=== PATIENT | female | born 1965 | race Two or more races ===

== ENCOUNTER 2017-02-15 11:18 | Outpatient (CLI) | payer BC ==
--- NOTE | 2017-02-23 13:33 | Mammography Report ---
DIGITAL SCREENING MAMMOGRAM: 02/15/2017 CLINICAL INDICATION: A 51-year-old nulliparous patient for screening. COMPARISON: Films from [place], [place] dated 05/29/2014, 05/20/2014, 02/18/2009, 10/22/2008, , 12/18/2006. TECHNIQUE: Routine CC and MLO projections were obtained of the breasts. FINDINGS: The breasts again demonstrate scattered fibroglandular densities bilaterally. Small circu mscribed nodules are stable bilaterally. Coarse, typically benign calcifications are present. No medina spicious masses, clustered microcalcifications, or regions of architectural distortion are identified . IMPRESSION: BENIGN FINDINGS. RECOMMENDATION: Routine annual screening unless otherwise clinically indicated. BIRADS CATEGORY 2 - BENIGN FINDINGS. STANDARD QUALIFYING STATEMENTS 1. This examination was reviewed with the aid of Computer-Aided Detection (CAD). 2. A negative or benign imaging report should not delay biopsy if clinically suspicious findings are present. Consider surgical consultation if warranted. More than 5% of cancers are not identified by i maging. 3. Dense breasts may obscure an underlying neoplasm. JOB #: [id number] EXT JOB #:[id number]
== END 2017-02-15 11:19 | disposition home or self-care (01) ==
LOC: DI 11:18
PROVIDERS: ATTEND Internal Medicine
DX: Z12.31 Encounter for screening mammogram for malignant neoplasm of breast (principal)
CPT/HCPCS: 77067

== ENCOUNTER 2019-05-12 00:32 | Outpatient (CLI) | payer OTHER | END 2019-05-12 00:33 | disposition critical access hospital (66) | LOC: EMS 00:32 | PROVIDERS: ATTEND Surgery | DX: R55 Syncope and collapse (principal); R63.0 Anorexia; R11.0 Nausea; R19.7 Diarrhea, unspecified; R05 Cough; R03.1 Nonspecific low blood-pressure reading; R51 Headache; Z91.81 History of falling | CPT/HCPCS: A0425; A0427 ==

== ENCOUNTER 2019-05-12 01:12 | Emergency (ER) | payer OTHER ==
[2019-05-12] MEDS ORDERED: SODIUM CHLORIDE 0.9% 1,000 ML IV ONE (01:17)
--- NOTE | 2019-05-12 01:22 | ED Physician Documentation ---
PD HPI SYNCOPE - Stated complaint Stated Complaint: SYNCOPE, WEAKNESS - Chief complaint Chief Complaint: Neuro - History obtained from History obtained from: Patient, Family, EMS - History of Present Illness Witnessed: Witnessed Timing - onset: How many minutes ago (approximately 30-40) Duration: Minutes Preceding symptoms: Diaphoresis, Light headed, Generalized weakness Associated symptoms: No: Seizure, Incontinant of urine, Incontinant of stool, Headache, Vision changes, Chest pain Contributing factors: Just stood up Injury occurred: None Pain level now: 0 Similar symptoms before: Has not had sx before Recently seen: Not recently seen - Additional information Additional information: BIBA. patient has been taking in small amounts of PO over past 4 days due to nausea, diarrhea. tonight, this progressed to involve dizziness and generalized weakness. she had been in bed when she got up to use bathroom. family heard noise c/w fall, and found patient on floor in bedroom. she rapidly regained consciousness and tried to get up but she then had second syncopal episode lasting 1-2 minutes. EMS arrived to find 81 SBP, bsfs = 146. she received 650cc IV NS and arrives normotensive. she has mild nausea and generalized weakness but says she feels significantly improved after IV fluids Review of Systems Constitutional: reports: Fatigue. denies: Fever, Chills, Sweats Eyes: reports: Reviewed and negative Ears: reports: Reviewed and negative Nose: reports: Reviewed and negative Throat: reports: Reviewed and negative Cardiac: reports: Reviewed and negative Respiratory: reports: Reviewed and negative GI: reports: Nausea, Vomiting, Diarrhea. denies: Abdominal Pain : denies: Dysuria, Frequency Musculoskeletal: reports: Reviewed and negative Neurologic: reports: Generalized weakness, Syncope, LOC. denies: Focal weakness, Numbness, Seizure, Headache, Head injury PD PAST MEDICAL HISTORY - Past Medical History Past Medical History: No - Past Surgical History Past Surgical History: No - Present Medications Home Medications: Ambulatory Orders Medication Instructions Recorded Confirmed Mirtazapine [Remeron] 10 mg PO DAILY 05/12/19 05/12/19 - Allergies Allergies/Adverse Reactions: Allergies Allergy/AdvReac Type Severity Reaction Status Date / Time iodine Allergy Anaphylaxis Verified 05/12/19 01:26 Sulfa (Sulfonamide Allergy Hives Verified 05/12/19 01:26 Antibiotics) PD ED PE NORMAL - Vitals Vital signs reviewed: Yes - General General: Alert and oriented X 3, No acute distress, Well developed/nourished - HEENT HEENT: Atraumatic, PERRL, EOMI, Moist mucous membranes - Neck Neck: Supple, no meningeal sign, No bony TTP - Cardiac Cardiac: RRR, No murmur - Respiratory Respiratory: No respiratory distress, Clear bilaterally - Abdomen Abdomen: Soft, Non tender - Derm Derm: Normal color, Warm and dry - Extremities Extremities: No tenderness to palpate, Normal ROM s pain, No edema - Neuro Neuro: Alert and oriented X 3, animal keeper 2-12 intact, No motor deficit, No sensory deficit, Normal speech Eye Opening: Spontaneous Motor: Obeys Commands Verbal: Oriented GCS Score: 15 Results - Vitals Vitals: Oxygen O2 Source Room air - EKG (time done) No standard instances Rate: Rate (enter#) (78) Rhythm: NSR Adrian: Normal Intervals: Normal NM QRS: Normal Ischemia: Normal ST segments - Labs Labs: Laboratory Tests 05/12/19 05/12/19 05/12/19 01:23 01:23 01:23 WBC 5.5 RBC 4.74 Hgb 12.8 Hct 39.1 MCV 82.5 MCH 27.0 MCHC 32.7 RDW 14.2 Plt Count 185 MPV 10.8 Neut # (Auto) 2.9 Lymph # (Auto) 1.7 Teller # (Auto) 0.6 Eos # (Auto) 0.2 Baso # (Auto) 0.0 Absolute Nucleated RBC 0.00 Nucleated RBC % 0.0 Sodium 138 Potassium 3.3 L Chloride 102 Carbon Dioxide 27 Anion Gap 9.0 BUN 18 Creatinine 1.0 Estimated GFR (MDRD) 58 L Glucose 125 H Calcium 8.3 L Total Bilirubin 0.6 AST 21 ALT 21 Alkaline Phosphatase 42 Troponin I High Sens < 2.3 L Total Protein 6.8 Albumin 3.5 Globulin 3.3 Albumin/Globulin Ratio 1.1 Lipase 44 - Rads (name of study) chest xray Radiology: Prelim report reviewed, See rad report PD MEDICAL DECISION MAKING - ED course Complexity details: reviewed results, re-evaluated patient, considered differential, d/w patient, d/w family ED course: improved with IV fluids and zofran and was asymptomatic prior to discharge, including with standing (orthostatics were negative) Departure - Departure Disposition: 01 Home, Self Care Clinical Impression: Syncope Qualifiers: Syncope type: unspecified Qualified Code(s): R55 - Syncope and collapse Condition: Good Instructions: ED Hypotension Orthostatic, ED Fainting Unkn Cause Follow-Up: Arabella Hernadez ARNP [Primary Care Provider] - Within 3 Days Discharge Date/Time: 05/12/19 03:08
[2019-05-12 01:28] LABS: BASOPHILS % (AUTO) 0.7 %; EOSINOPHILS # (AUTO) 0.2 10^3/uL (0.0-0.7); EOSINOPHILS % (AUTO) 3.5 %; HGB - HEMOGLOBIN 12.8 g/dL (12.0-16.0); LYMPHOCYTES # (AUTO) 1.7 10^3/uL (1.5-3.5); LYMPHOCYTES % (AUTO) 30.7 %; MEAN CORPUSCULAR HGB CONC 32.7 g/dL (32.0-36.0); MEAN CORPUSCULAR VOLUME 82.5 fL (81.0-99.0); MEAN PLATELET VOLUME 10.8 fL (7.9-10.8); MONOCYTES # (AUTO) 0.6 10^3/uL (0.0-1.0); MONOCYTES % (AUTO) 11.2 %; NEUTROPHILS # (AUTO) 2.9 10^3/uL (1.5-6.6); NEUTROPHILS % (AUTO) 53.7 %; PLT - PLATELET COUNT 185 10^3/uL (130-450); RED BLOOD COUNT 4.74 10^6/uL (4.20-5.40); RED CELL DISTRIBUTION WIDTH 14.2 % (12.0-15.0); WHITE BLOOD COUNT 5.5 x10^3/uL (4.8-10.8)
[2019-05-12 01:41] LABS: ALBUMIN 3.5 g/dL (3.2-5.5); ALBUMIN/GLOBULIN RATIO 1.1 (1.0-2.2); BILIRUBIN,TOTAL 0.6 mg/dL (0.2-1.0); CALCIUM 8.3 mg/dL (8.5-10.3); TOTAL PROTEIN 6.8 g/dL (6.7-8.2)
--- NOTE | 2019-05-12 02:02 | XRAY Report ---
Reason: syncope Procedure Date: 05/12/2019 Accession Number: [id number] / [id number] Procedure: XR - Chest 2 View X-Ray CPT Code: 91716 Final Report FULL RESULT: EXAM: CHEST RADIOGRAPHY EXAM DATE: 05/12/2019 01:55 AM. CLINICAL HISTORY: Syncope. COMPARISON: [facility] 09/30/2015 4:50 PM. TECHNIQUE: 2 views. FINDINGS: Lungs/Pleura: No focal opacities evident. No pleural effusion. No pneumothorax. Normal volumes. Mediastinum: Heart and mediastinal contours are unremarkable. Other: None. IMPRESSION: Normal 2-view chest radiography. RADIA
[2019-05-12] MEDS ORDERED: SODIUM CHLORIDE 0.9% 1,000 ML IV STA (02:08)
[2019-05-12] MEDS ORDERED: POTASSIUM CHLORIDE 20 MEQ TABLET PO STA (03:01)
[2019-05-12 03:09] VITALS: BP 103/57
== END 2019-05-12 03:08 | disposition home or self-care (01) ==
LOC: EDBD → EDUNIT# → ED 01:12
DX: R55 Syncope and collapse (principal); R42 Dizziness and giddiness; R53.1 Weakness; R11.2 Nausea with vomiting, unspecified; R19.7 Diarrhea, unspecified
CPT/HCPCS: 36415; 71046; 80053; 83690; 84484; 85025; 93005; 96360; 99284; A9270

== ENCOUNTER 2021-09-27 11:58 | Day surgery (SDC) | payer OTHER ==
[2021-09-27] MEDS ORDERED: LACTATED RINGERS 1,000 ML IV ONE ×2 (12:37→13:23)
--- NOTE | 2021-09-27 12:41 | ANESTHESIA ---
Pre-Anesthesia VS, & Labs - Diagnosis screening exam - Procedure colonoscopy Vital Signs: Temp Pulse Resp BP Pulse Ox 36.4 C L 88 16 131/88 H 96 09/27/21 12:23 09/27/21 12:23 09/27/21 12:23 09/27/21 12:23 09/27/21 12:23 Height: 5 ft 5 in Weight (kg): 85.3 kg Body Mass Index: 31.3 BMI Classification: Obese - NPO >8 hours Last Fluid Intake: clear liquids at 0955 - Is Patient ?: No Home Medications and Allergies Home Medications: Ambulatory Orders Advil Pm 2 cap PO PRN PRN 09/19/21 Albuterol Sulfate [Proair Hfa Inhaler] 1 - 2 puffs INH Q4H PRN 09/19/21 Allersode Homeopathic Remedy 1 inh YOSELIN BID 09/19/21 Apple Cider Vinegar 1 cap PO DAILY PRN 09/19/21 Ascorbic Acid [Vitamin C] 1,000 mg PO BID 09/19/21 Aspirin [Aspirin EC] 81 mg PO DAILY 09/19/21 Black Elderberry 3,800 mg PO DAILY 09/19/21 Calcium Carbonate [Tums (Calcium Carbonate 500mg)] 1,000 mg PO DAILY 09/19/21 Carisoprodol [Soma] 350 mg PO PRN PRN 09/19/21 Cholecalciferol (Vitamin D3) [Vitamin D3] 50 mcg PO DAILY 09/19/21 Cinsulin 2 cap PO DAILY 09/19/21 Collagen/Biotin/Ascorbic Acid [Collagen 1500 Plus C Capsule] 6,000 mg PO BID 09/19/21 Diclofenac Sodium [Voltaren Arthritis Pain] 1 applic TP PRN PRN 09/19/21 Doxylamine Succinate [Unisom] 25 mg PO PRN PRN 09/19/21 Epsteinbarr Homeopathic Remedy 1 drops PO BID 09/19/21 Famotidine [Pepcid] 20 mg PO BID PRN 09/19/21 Garlic 1,000 mg PO DAILY 09/19/21 Ibuprofen [Motrin] 600 mg PO Q6H PRN 09/19/21 Ibuprofen/Phenylephrine HCl [Advil Sinus Congest-Pain Tab] 1 each PO Q4HR PRN 09/19/21 Loratadine [Claritin] 10 mg PO DAILY 09/19/21 Magnesium Citrate 250 mg PO DAILY 09/19/21 Melatonin 5 mg PO DAILY 09/19/21 Gunnison-3/Dha/Epa/Fish Oil [Fish Oil 1,360 mg Softgel] 1 tab PO DAILY 09/19/21 Omeprazole 20 mg PO DAILY 09/19/21 Turmeric Root Extract [Turmeric] 1,000 mg PO DAILY 09/19/21 Zinc Gluconate [Zinc] 50 mg PO DAILY 09/19/21 diphenhydrAMINE [Benadryl] 25 mg PO DAILY PRN 09/19/21 flaxseed oiL [Flaxseed Oil] 1,400 mg PO DAILY 09/19/21 hydroCHLOROthiazide [Hydrodiuril] 25 mg PO DAILY 09/19/21 metFORMIN [Glucophage] 250 mg PO BIDWM 09/19/21 Advil Pm 2 cap PO PRN PRN 09/19/21 Albuterol Sulfate [Proair Hfa Inhaler] 1 - 2 puffs INH Q4H PRN 09/19/21 All[place]ode Homeopathic Remedy 1 inh YOSELIN BID 09/19/21 Apple Cider Vinegar 1 cap PO DAILY PRN 09/19/21 Ascorbic Acid [Vitamin C] 1,000 mg PO BID 09/19/21 Aspirin [Aspirin EC] 81 mg PO DAILY 09/19/21 Black Elderberry 3,800 mg PO DAILY 09/19/21 Calcium Carbonate [Tums (Calcium Carbonate 500mg)] 1,000 mg PO DAILY 09/19/21 Carisoprodol [Soma] 350 mg PO PRN PRN 09/19/21 Cholecalciferol (Vitamin D3) [Vitamin D3] 50 mcg PO DAILY 09/19/21 Cinsulin 2 cap PO DAILY 09/19/21 Collagen/Biotin/Ascorbic Acid [Collagen 1500 Plus C Capsule] 6,000 mg PO BID 09/19/21 Diclofenac Sodium [Voltaren Arthritis Pain] 1 applic TP PRN PRN 09/19/21 Doxylamine Succinate [Unisom] 25 mg PO PRN PRN 09/19/21 Epsteinbarr Homeopathic Remedy 1 drops PO BID 09/19/21 Famotidine [Pepcid] 20 mg PO BID PRN 09/19/21 Garlic 1,000 mg PO DAILY 09/19/21 Ibuprofen [Motrin] 600 mg PO Q6H PRN 09/19/21 Ibuprofen/Phenylephrine HCl [Advil Sinus Congest-Pain Tab] 1 each PO Q4HR PRN 09/19/21 Loratadine [Claritin] 10 mg PO DAILY 09/19/21 Magnesium Citrate 250 mg PO DAILY 09/19/21 Melatonin 5 mg PO DAILY 09/19/21 [place]-3/Dha/Epa/Fish Oil [Fish Oil 1,360 mg Softgel] 1 tab PO DAILY 09/19/21 Omeprazole 20 mg PO DAILY 09/19/21 Turmeric Root Extract [Turmeric] 1,000 mg PO DAILY 09/19/21 Zinc Gluconate [Zinc] 50 mg PO DAILY 09/19/21 diphenhydrAMINE [Benadryl] 25 mg PO DAILY PRN 09/19/21 flaxseed oiL [Flaxseed Oil] 1,400 mg PO DAILY 09/19/21 hydroCHLOROthiazide [Hydrodiuril] 25 mg PO DAILY 09/19/21 metFORMIN [Glucophage] 250 mg PO BIDWM 09/19/21 Allergies/Adverse Reactions: Allergies Allergy/AdvReac Type Severity Reaction Status Date / Time avocado Allergy Respiratory Verified 09/19/21 16:03 clotrimazole [From Mycelex] Allergy Hives Verified 09/19/21 16:03 iodine Allergy Anaphylaxis Verified 05/12/19 01:26 shellfish derived Allergy Anaphylaxis Verified 09/19/21 16:03 Sulfa (Sulfonamide Allergy Hives Verified 05/12/19 01:26 Antibiotics) tioconazole Allergy Hives Verified 09/19/21 16:03 [From Monistat 1 (tioconazole)] hydromorphone [From Dilaudid] AdvReac Nausea/vomi Verified 09/19/21 16:03 ting Anes History & Medical History - Anesthetic History Anesthesia Complications: reports: No previous complications - Medical History Cardiovascular: reports: Hypertension Pulmonary: reports: Other (snores, "borderline sleep study") Gastrointestinal: reports: GERD, Hiatal hernia, Hemorrhoids Urinary: reports: None Neuro: reports: None Musculoskeletal: reports: Osteoarthritis Endocrine/Autoimmune: reports: Other (pre-diabetes) Blood Disorders: reports: None Skin: reports: Eczema Smoking Status: Never smoker Psychosocial: reports: No issues indicated History of Cancer?: No - Surgical History General: reports: Colonoscopy Eyes Ears Nose Throat (EENT): reports: Other (sinus surgery) Gynecologic: reports: Other (pelvic cyst) Exam General: Alert, Oriented x3, Cooperative, No acute distress Dental: WNL Mouth Openin Fingerbreadth Neck Mobility: Normal Mallampati classification: III Thyromental Distance: 4-6 cm Mental/Cognitive Status: Alert/Oriented X3, Normal for patient Plan Anesthesia Type: General, Total IV Consent for Procedure(s) Verified and Reviewed: Yes Code Status: Attempt Resuscitation ASA classification: 2-Mild systemic disease Is this case an emergency?: No
[2021-09-27] MEDS ORDERED: PROPOFOL 500 MG/50 ML 500 MG/50 ML VIAL ONE (13:00)
[2021-09-27 13:46] VITALS: BP 127/68
--- NOTE | 2021-09-27 13:47 | ANESTHESIA POST OP EVALUATION ---
Anesthesia Post Eval - Post Anesthesia Eval Vitals: Last Vital Signs Temp 36.6 C 09/27/21 13:46 Pulse 79 09/27/21 13:46 Resp 16 09/27/21 13:46 BP 127/68 09/27/21 13:46 Pulse Ox 99 09/27/21 13:46 CV Function Including HR & BP: Stable Pain Control: Satisfactory Nausea & Vomiting: Negative Mental Status: Baseline Respiratory Status: Airway Patent Hydration Status: Satisfactory Anesthesia Complications: None
== END 2021-09-27 11:59 | disposition home or self-care (01) ==
LOC: SDS 11:58
PROVIDERS: ATTEND Surgery
PROC: 0DBP8ZZ Excision of Rectum, Via Natural or Artificial Opening Endoscopic (ICD-10-PCS; principal; 2021-09-27 13:15)
DX: Z12.11 Encounter for screening for malignant neoplasm of colon (principal); K62.1 Rectal polyp; K64.8 Other hemorrhoids; K64.4 Residual hemorrhoidal skin tags; Q43.8 Other specified congenital malformations of intestine; G47.30 Sleep apnea, unspecified; E66.9 Obesity, unspecified; Z68.31 Body mass index [BMI] 31.0-31.9, adult; E11.9 Type 2 diabetes mellitus without complications; Z79.84 Long term (current) use of oral hypoglycemic drugs
CPT/HCPCS: 45380; J7120

== ENCOUNTER 2023-08-07 12:59 | Outpatient (CLI) | payer OTHER ==
--- NOTE | 2023-08-08 09:43 | Mammography Report ---
BILATERAL DIGITAL SCREENING MAMMOGRAM 3D/2D: 08/07/2023 CLINICAL: Routine screening. Family history of breast cancer. Comparison is made to exams dated: 02/15/2017 mammogram - [facility], 05/29/2014 [facility], and 05/20/2014 mammogram - [facility]. Both breasts are almost entirely fatty (category a/<25% glandular tissue). No significant masses, calcifications, or other findings are seen in either breast. There has been no significant interval change. IMPRESSION: NEGATIVE There is no mammographic evidence of malignancy. A 1 year screening mammogram is recommended. Based on the Tyrer Cuzick model (a risk assessment model) the patient's lifetime risk is 8.4% and her 10 year risk is 3.1%. According to the ACR, ACS, and NCCN guidelines, an annual breast MRI exam jluian g with mammogram is recommended if the patient's lifetime risk is 20% or greater. This exam was interpreted at Station ID: [id number]. NOTE: For mammograms, a report in lay terms will be sent to the patient. Approximately 15% of breast malignancies will not be visualized mammographically. In the management of a palpable breast mass, a negative mammogram must not discourage biopsy of a clinically suspicious lesion. Electronically Signed By: Junior [email or web address]:08/07/2023 14:52:52 letter sent: No_Letter ACR BI-RADS Category 1: Negative 3341F PARENCHYMAL PATTERN: (F) - The breast(s) demonstrate(s) diffuse fatty replacement. BI-RADS CATEGORY: (1) - 1 Mammogram [id number] 1 year screening LATERALITY: (B)
== END 2023-08-07 13:00 | disposition home or self-care (01) ==
LOC: DI.S 12:59
PROVIDERS: ATTEND Registered Nurse
DX: Z12.31 Encounter for screening mammogram for malignant neoplasm of breast (principal); Z80.3 Family history of malignant neoplasm of breast

== ENCOUNTER 2023-08-13 08:00 | Outpatient (CLI) | payer OTHER ==
--- NOTE | 2023-08-13 17:04 | XRAY Report ---
PROCEDURE: Knee 4 View RT INDICATIONS: RIGHT KNEE PAIN TECHNIQUE: 4 views of the knee(s) were acquired. COMPARISON: None. FINDINGS: Bones: No fractures or dislocations. No suspicious bony lesions. Moderate medial greater than later al Apartment joint space narrowing and osteophytosis. Mild joint space narrowing and osteophytosis of the patellofemoral compartment. Soft tissues: No knee joint effusion. No suspicious soft tissue calcifications or masses. IMPRESSION: No acute bony abnormality. Moderate medial greater than lateral femorotibial osteoarthrosis. Mild patellofemoral osteoarthrosis. Reviewed by: Lakshmi Bautista MD on 08/13/2023 5:02 PM PST Approved by: Lakshmi Bautista MD on 08/13/2023 5:02 PM PST Station ID: [id number]
== END 2023-08-13 23:59 | disposition home or self-care (01) ==
LOC: DI.WOS 08:00
PROVIDERS: ATTEND Physician Assistant Surgical
DX: M17.11 Unilateral primary osteoarthritis, right knee (principal)